=== PATIENT | male | born 1960 | race African-American/Black ===

== ENCOUNTER 2019-10-21 10:57 | Inpatient (IN) | payer OTHER ==
--- NOTE | 2019-10-21 11:14 | BHS.RME ---
Substance Use & Tx History - Substance Use History Heroin Substance amount: 2 bundles Frequency of use: Daily Substance route: Inhalation (ex: sniffing or snorting) Date of Last Use: 10/20/19 Cocaine- Powder Substance amount: 1 line Frequency of use: Once a month Substance route: Inhalation (ex: sniffing or snorting) Date of Last Use: 10/18/19 Nicotine Substance amount: 1 pack Frequency of use: Daily Substance route: Smoking Date of Last Use: 10/21/19 Physical/Psych/Mental Status - Behavior General Behavior: Increased activity (restlessness, agitation) Eye Contact: Normal - Cooperativeness Cooperativeness: Cooperative - Thinking Thought Processes: Tight, Logical, Goal Directed - Physical Health Problems Is patient presently having any pain?: No Does patient presently have any injuries (include location): No Does patient currently have a fever: No Is patient : No COWS - Scale Resting Pulse: 1= [place] 81-100 Sweatin= Beads of Sweat on Face Restless Observation: 1= Difficult to Sit Still Pupil Size: 1= Pupils >than Normal Bone or Joint Aches: 2= Severe Diffuse Aches Runny Nose/ Eye Tearin= Runny Nose/Eyes GI Upset > 30mins: 2= Nausea/Diarrhea Tremor Observation: 2= Slight Tremor Visible Yawning Observation: 1= 1-2x During Session Anxiety or Irritability: 2=Irritable/Anxious Goose Flesh Skin: 3=Piloerection COWS Score: 20
--- NOTE | 2019-10-21 12:43 | HP ---
COWS - Scale Resting Pulse: 1= [place] 81-100 Sweatin= Beads of Sweat on Face Restless Observation: 1= Difficult to Sit Still Pupil Size: 1= Pupils >than Normal Bone or Joint Aches: 2= Severe Diffuse Aches Runny Nose/ Eye Tearin= Runny Nose/Eyes GI Upset > 30mins: 2= Nausea/Diarrhea Tremor Observation: 2= Slight Tremor Visible Yawning Observation: 1= 1-2x During Session Anxiety or Irritability: 2=Irritable/Anxious Goose Flesh Skin: 3=Piloerection COWS Score: 20 CIWA Score - Admission Criteria [facility]ASAS Guidelines: Admission for Medically Managed Detox: Requires at least one of the followin. CIWA greater than 12 2. Seizures within the past 24 hours 3. Delirium tremens within the past 24 hours 4. Hallucinations within the past 24 hours 5. Acute intervention needed for co occurring medical disorder 6. Acute intervention needed for co occurring psychiatric disorder 7. Severe withdrawal that cannot be handled at a lower level of care (continued vomiting, continued diarrhea, abnormal vital signs) requiring intravenous medication and/or fluids 8. Admitting History and Physical - Admission Chief Complaint: Mr. Gaitan presents to [facility] stating "I'm tired, I don't want to get high anymore, I just want to get some help". 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 History of Present Illness: Mr. Gaitan presents to [facility] stating "I'm tired, I don't want to get high anymore, I just want to get some help". 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 This is his first visit to [facility]. PMH: HTN, on meds PSH; 2013: hernitated L23 (subsequent opioid rx) Psych: none SoC: homeless on streets Legal: none Substance Use History Heroin Substance amount: 2 bundles Frequency of use: Daily Substance route: Inhalation (ex: sniffing or snorting) Date of Last Use: 10/20/19 First use age 24 y Overdose x 2017, Has Narcan at home Cocaine- Powder Substance amount: 1 line Frequency of use: Once a month Substance route: Inhalation (ex: sniffing or snorting) Date of Last Use: 10/18/19 First use age 24 y Nicotine Substance amount: 1 pack Frequency of use: Daily Substance route: Smoking Date of Last Use: 10/21/19 First use age 12y MDMA; denies Admission ROS [facility] - HPI Exam Limitations: No Limitations - Ebola screening Have you traveled outside of the country in the last 21 days: No Have you been sick,other than usual withdrawal symptoms: No Do you have a fever: No - Review of Systems Constitutional: Unintentional Wgt. Loss (10-20 lbs in the past several months) EENT: reports: Blurred Vision (has reading glasses with him) Respiratory: reports: No Symptoms reported Cardiac: reports: No Symptoms Reported GI: reports: Nausea : reports: No Symptoms Reported Musculoskeletal: reports: Back Pain, Joint Pain Integumentary: reports: No Symptoms Reported Neuro: reports: No Symptoms reported Endocrine: reports: No Symptoms Reported Hematology: reports: No Symptoms Reported Psychiatric: reports: No Sypmtoms Reported Patient History - Smoking Cessation Smoking history: Current every day smoker Have you smoked in the past 12 months: Yes Aproximately how many cigarettes per day: 20 Hx Chewing Tobacco Use: No Initiated information on smoking cessation: Yes 'Breaking Loose' booklet given: 10/21/19 Admission Physical Exam [facility] Physical General Appearance: Yes: Within Normal Limits, No Apparent Distress, Nourished, Appropriately Dressed HEENTM: Yes: EOMI, Hearing grossly Normal, Normocephalic, Normal Voice Respiratory: Yes: Lungs Clear, Normal Breath Sounds, No Accessory Muscle Use Neck: Yes: Within Normal Limits, Supple Breast: Yes: Breast Exam Deferred Cardiology: Yes: Regular Rhythm, Regular Rate, S1, S2 Abdominal: Yes: Normal Bowel Sounds, Non Tender, Flat, Soft Genitourinary: Yes: Other (deferred) Back: Yes: Within Normal Limits Musculoskeletal: Yes: Gait Steady Extremities: Yes: Normal Inspection, Non-Tender Neurological: Yes: Within Normal Limits Integumentary: Yes: Normal Color, Dry, Warm - Diagnostic (1) Opioid use with withdrawal Current Visit: Yes Status: Acute (2) Cocaine use Current Visit: Yes Status: Acute (3) Nicotine dependence Current Visit: Yes Status: Acute (4) HTN (hypertension) Current Visit: Yes Status: Chronic (5) Homeless Current Visit: Yes Status: Acute Cleared for Admission [facility] - Detox or Rehab BHS Level of Care: Medically Managed Detox Regimen/Protocol: Methadone Breathalyzer - Breathalyzer Breathalyzer: 0 Urine Drug Screen - Test Device Lot number: [id number] Expiration date: 12/08/20 - Control Is test valid?: Yes - Results Drug screen NEGATIVE: No Urine drug screen results: DRAGAN-Cocaine, FEN-Fentanyl, MOP-Opiates, MTD- Methadone, MDMA-Ecstasy Inpatient Rehab Admission - Rehab Decision to Admit Inpatient rehab admission?: No
[2019-10-21] MEDS ORDERED: ONDANSETRON *ODT* 4 MG TABLET SL PRN (12:46)
[2019-10-21] MEDS ORDERED: MAGNESIUM CITRATE 300 ML BOTTLE PO PRN (12:46)
[2019-10-21] MEDS ORDERED: METHOCARBAMOL 500 MG TABLET PO PRN (12:46)
[2019-10-21] MEDS ORDERED: IBUPROFEN 400 MG TABLET (FP) PO PRN (12:46)
[2019-10-21] MEDS ORDERED: BISMUTH SUBSALICYLATE 524 MG/30 ML UD PO PRN (12:46)
[2019-10-21] MEDS ORDERED: MAGNESIUM HYDROX 2400MG/30ML ORAL SUSPENSION 30 ML CUP PO PRN (12:46)
[2019-10-21] MEDS ORDERED: MENTHOL/PHENOL 1 EACH UD MM PRN (12:46)
[2019-10-21] MEDS ORDERED: NICOTINE POLACRILEX 2 MG GUM BUC PRN (12:46)
[2019-10-21] MEDS ORDERED: ACETAMINOPHEN 325 MG TABLET (FP) PO PRN ×2 (12:46)
[2019-10-21] MEDS ORDERED: MAG HYDROX/AL HYDROX/SIMETH 30 ML UNIT-DOSE CUP PO PRN (12:46)
[2019-10-21 13:18] VITALS: BMI 22.1
--- NOTE | 2019-10-21 13:34 | EKG ---
Test Reason : Blood Pressure : / mmHG Vent. Rate : 067 BPM Atrial Rate : 067 BPM P-R Int : 154 ms QRS Dur : 092 ms QT Int : 452 ms P-R-T Axes : 066 014 010 degrees QTc Int : 477 ms NORMAL SINUS RHYTHM POSSIBLE LEFT ATRIAL ENLARGEMENT BORDERLINE ECG NO PREVIOUS ECGS AVAILABLE Confirmed by Ana Lilia Shane ([id number]) on 10/21/2019 1:34:15 PM Referred By: Confirmed By:Ana Lilia Shane
[2019-10-21] MEDS ORDERED: METHADONE HCL 10 MG TABLET (FOR DETOX USE ONLY) PO ONE (13:45)
[2019-10-21] MEDS: hydrOXYzine PAMOATE 25 MG CAPSULE (FP) PO SCH ×3 (14:05→22:41)
[2019-10-21] MEDS: NICOTINE 21 MG/24 HOURS TOPICAL PATCH TD SCH (14:06)
[2019-10-21 17:26] LABS: HEMATOCRIT 38.9 % (35.4-49); HEMOGLOBIN 12.9 GM/dL (11.7-16.9); MCH 31.7 pg (25.7-33.7); MCHC 33.1 g/dl (32.0-35.9); MEAN PLT VOLUME 8.6 fl (7.5-11.1); PLATELET COUNT 322 K/MM3 (134-434); RBC 4.05 M/mm3 (4.00-5.60); RDW 13.8 % (11.9-15.9); WHITE BLOOD COUNT 6.6 K/mm3 (4.0-10.0)
[2019-10-21 17:40] LABS: ALBUMIN 3.8 g/dl (3.4-5.0); BILIRUBIN,TOTAL 0.6 mg/dL (0.2-1); BLOOD UREA NITROGEN 12.9 mg/dL (7-18); CALCIUM 9.2 mg/dL (8.5-10.1); CREATININE 1.1 mg/dL (0.55-1.3); TOT PROT 7.8 g/dl (6.4-8.2)
[2019-10-21] MEDS: cloNIDine HCL 0.1 MG TABLET PO PRN ×2 (17:44→22:41)
[2019-10-21] MEDS: THIAMINE HCL 100 MG TABLET (FP) PO SCH (22:41)
[2019-10-21] MEDS: MELATONIN 5 MG TABLETS PO SCH (22:42)
[2019-10-22] MEDS: cloNIDine HCL 0.1 MG TABLET PO PRN (06:01)
[2019-10-22] MEDS: hydrOXYzine PAMOATE 25 MG CAPSULE (FP) PO SCH (06:01)
[2019-10-22] MEDS ORDERED: hydrOXYzine PAMOATE 25 MG CAPSULE (FP) PO PRN (09:16)
[2019-10-22] MEDS ORDERED: METHADONE HCL 5 MG TABLET (FOR DETOX USE ONLY) ONE (09:31)
[2019-10-22] MEDS ORDERED: METHADONE HCL 10 MG TABLET (FOR DETOX USE ONLY) ONE (09:32)
[2019-10-22] MEDS ORDERED: METHADONE (DETOX) 20 MG, METHADONE (DETOX) 5 MG PO ONE (10:00)
[2019-10-22] MEDS: amLODIPine BESYLATE 5 MG TABLET (FP) PO SCH (10:02)
[2019-10-22] MEDS: cloNIDine HCL 0.1 MG TABLET PO SCH ×2 (10:02→21:19)
[2019-10-22] MEDS: ENALAPRIL MALEATE 5 MG TABLET (FP) PO SCH (10:02)
[2019-10-22] MEDS: PRENATAL VITAMINS W/ FOLIC ACID TABLET (FP) PO SCH (10:04)
[2019-10-22] MEDS: NICOTINE 21 MG/24 HOURS TOPICAL PATCH TD SCH (10:04)
--- NOTE | 2019-10-22 10:35 | PN ---
BHS COWS - Scale Resting Pulse: 0= [place] 80 or Below Sweatin= Chills/Flushing Restless Observation: 1= Difficult to Sit Still Pupil Size: 0= Normal to Room Light Bone or Joint Aches: 2= Severe Diffuse Aches Runny Nose/ Eye Tearin= Nasal Congestion GI Upset > 30mins: 0= None Tremor Observation of Outstretched Hands: 2= Slight Tremor Visible Yawning Observation: 1= 1-2x During Session Anxiety or Irritability: 2=Irritable/Anxious Goose Flesh Skin: 3=Piloerection COWS Score: 13 BHS Progress Note (SOAP) Subjective: chills sweats shakes body aches agitation interrupted sleep restless irritable Objective: 10/22/19 10:33 Vital Signs Temperature 98 F 10/22/19 08:55 Pulse Rate 73 10/22/19 08:55 Respiratory Rate 18 10/22/19 08:55 Blood Pressure 158/101 H 10/22/19 08:55 O2 Sat by Pulse Oximetry (%) 100 10/22/19 05:40 Laboratory Tests 10/21/19 10/21/19 10/21/19 12:25 12:45 12:45 WBC 6.6 RBC 4.05 Hgb 12.9 Hct 38.9 MCV 96.0 MCH 31.7 MCHC 33.1 RDW 13.8 Plt Count 322 MPV 8.6 Sodium 143 Potassium 4.0 Chloride 107 Carbon Dioxide 30 Anion Gap 7 L BUN 12.9 Creatinine 1.1 Est GFR (CKD-EPI)AfAm 84.71 Est GFR (CKD-EPI)NonAf 73.09 Random Glucose 83 Calcium 9.2 Total Bilirubin 0.6 AST 21 ALT 18 Alkaline Phosphatase 120 H Total Protein 7.8 Albumin 3.8 Syphilis Serology Reactive A* COVID-19 (ELISEO) HIV Ag/Ab Combo Qual 10/21/19 10/21/19 13:20 13:20 WBC RBC Hgb Hct MCV MCH MCHC RDW Plt Count MPV Sodium Potassium Chloride Carbon Dioxide Anion Gap BUN Creatinine Est GFR (CKD-EPI)AfAm Est GFR (CKD-EPI)NonAf Random Glucose Calcium Total Bilirubin AST ALT Alkaline Phosphatase Total Protein Albumin Syphilis Serology COVID-19 (ELISEO) Not detected HIV Ag/Ab Combo Qual Negative labs noted aaox3 lying in bed no acute distress reactive A syphilis pending rpr Assessment: 10/22/19 10:34 withdrawals Plan: continue detox increase fluids valium 10mg prn x 4hrs for three days
[2019-10-22] MEDS: THIAMINE HCL 100 MG TABLET (FP) PO SCH (21:20)
[2019-10-22] MEDS: MELATONIN 5 MG TABLETS PO SCH (21:22)
[2019-10-23] MEDS ORDERED: METHADONE HCL 10 MG TABLET (FOR DETOX USE ONLY) PO ONE (10:00)
[2019-10-23] MEDS: cloNIDine HCL 0.1 MG TABLET PO SCH ×2 (10:11→21:02)
[2019-10-23] MEDS: amLODIPine BESYLATE 5 MG TABLET (FP) PO SCH (10:11)
[2019-10-23] MEDS: ENALAPRIL MALEATE 5 MG TABLET (FP) PO SCH (10:13)
[2019-10-23] MEDS: PRENATAL VITAMINS W/ FOLIC ACID TABLET (FP) PO SCH (10:14)
[2019-10-23] MEDS: NICOTINE 21 MG/24 HOURS TOPICAL PATCH TD SCH (10:14)
--- NOTE | 2019-10-23 13:50 | PN ---
S COWS - Scale Resting Pulse: 0= [place] 80 or Below Sweatin= No chills or Flushing Restless Observation: 0= Sits Still Pupil Size: 1= Pupils >than Normal Bone or Joint Aches: 1= Mild Discomfort Runny Nose/ Eye Tearin= Nasal Congestion GI Upset > 30mins: 1= Stomach Cramp Tremor Observation of Outstretched Hands: 2= Slight Tremor Visible Yawning Observation: 1= 1-2x During Session Anxiety or Irritability: 2=Irritable/Anxious Goose Flesh Skin: 0=Smooth Skin COWS Score: 9 BHS Progress Note (SOAP) Subjective: alert,irritable,anxious,interrupted sleep,tremor,pain in the body and back, Objective: 10/23/19 13:53 Vital Signs Temperature 98.2 F 10/23/19 09:10 Pulse Rate 73 10/23/19 09:10 Respiratory Rate 16 10/23/19 09:10 Blood Pressure 157/103 H 10/23/19 09:10 O2 Sat by Pulse Oximetry (%) 98 10/23/19 09:10 Laboratory Last Values WBC 6.6 K/mm3 (4.0-10.0) 10/21/19 12:25 RBC 4.05 M/mm3 (4.00-5.60) 10/21/19 12:25 Hgb 12.9 GM/dL (11.7-16.9) 10/21/19 12:25 Hct 38.9 % (35.4-49) 10/21/19 12:25 MCV 96.0 fl (80-96) 10/21/19 12:25 MCH 31.7 pg (25.7-33.7) 10/21/19 12:25 MCHC 33.1 g/dl (32.0-35.9) 10/21/19 12:25 RDW 13.8 % (11.9-15.9) 10/21/19 12:25 Plt Count 322 K/MM3 (134-434) 10/21/19 12:25 MPV 8.6 fl (7.5-11.1) 10/21/19 12:25 Sodium 143 mmol/L (136-145) 10/21/19 12:45 Potassium 4.0 mmol/L (3.5-5.1) 10/21/19 12:45 Chloride 107 mmol/L (98-107) 10/21/19 12:45 Carbon Dioxide 30 mmol/L (21-32) 10/21/19 12:45 Anion Gap 7 MMOL/L (8-16) L 10/21/19 12:45 BUN 12.9 mg/dL (7-18) 10/21/19 12:45 Creatinine 1.1 mg/dL (0.55-1.3) 10/21/19 12:45 Est GFR (CKD-EPI)AfAm 84.71 10/21/19 12:45 Est GFR (CKD-EPI)NonAf 73.09 10/21/19 12:45 Random Glucose 83 mg/dL (74-106) 10/21/19 12:45 Calcium 9.2 mg/dL (8.5-10.1) 10/21/19 12:45 Total Bilirubin 0.6 mg/dL (0.2-1) 10/21/19 12:45 AST 21 U/L (15-37) 10/21/19 12:45 ALT 18 U/L (13-61) 10/21/19 12:45 Alkaline Phosphatase 120 U/L (45-117) H 10/21/19 12:45 Total Protein 7.8 g/dl (6.4-8.2) 10/21/19 12:45 Albumin 3.8 g/dl (3.4-5.0) 10/21/19 12:45 Syphilis Serology Reactive (NONREACTIVE) A* 10/21/19 12:45 RPR Titer Reactive 1:1 (NONREACTIVE) H 10/21/19 12:45 COVID-19 (ELISEO) Not detected (Not Detected) 10/21/19 13:20 HIV Ag/Ab Combo Qual Negative (NEGATIVE) 10/21/19 13:20 patient was treated for syphilis adequately treated with 3 injection in 2018 Assessment: 10/23/19 13:55 withdrawal symptom Plan: continue detox methadone regimen
[2019-10-23] MEDS: diazePAM 5 MG TABLET PO PRN (17:38)
[2019-10-23] MEDS: MELATONIN 5 MG TABLETS PO SCH (21:02)
[2019-10-23] MEDS: THIAMINE HCL 100 MG TABLET (FP) PO SCH (21:02)
[2019-10-24] MEDS ORDERED: METHADONE HCL 10 MG TABLET (FOR DETOX USE ONLY) ONE (09:16)
[2019-10-24] MEDS ORDERED: METHADONE HCL 5 MG TABLET (FOR DETOX USE ONLY) ONE (09:16)
[2019-10-24] MEDS ORDERED: MELATONIN 5 MG TABLETS PO PRN (09:49)
[2019-10-24] MEDS ORDERED: DICYCLOMINE HCL 10 MG CAPSULE PO PRN (09:53)
[2019-10-24] MEDS ORDERED: DICYCLOMINE HCL 10 MG CAPSULE PO ONE (09:53)
--- NOTE | 2019-10-24 09:53 | PN ---
BHS COWS - Scale Resting Pulse: 0= [place] 80 or Below Sweatin= Chills/Flushing Restless Observation: 0= Sits Still Pupil Size: 0= Normal to Room Light Bone or Joint Aches: 1= Mild Discomfort Runny Nose/ Eye Tearin= None GI Upset > 30mins: 1= Stomach Cramp Tremor Observation of Outstretched Hands: 0= None Yawning Observation: 1= 1-2x During Session Anxiety or Irritability: 1=Feels Anxious/Irritable Goose Flesh Skin: 0=Smooth Skin COWS Score: 5 BHS Progress Note (SOAP) Subjective: stomach cramping sweats irritable Objective: 10/24/19 09:51 Vital Signs Temperature 96.9 F L 10/24/19 05:30 Pulse Rate 50 L 10/24/19 05:30 Respiratory Rate 16 10/24/19 05:30 Blood Pressure 154/73 10/24/19 05:30 O2 Sat by Pulse Oximetry (%) 95 10/24/19 05:30 Laboratory Tests 10/21/19 10/21/19 10/21/19 12:25 12:45 12:45 WBC 6.6 RBC 4.05 Hgb 12.9 Hct 38.9 MCV 96.0 MCH 31.7 MCHC 33.1 RDW 13.8 Plt Count 322 MPV 8.6 Sodium 143 Potassium 4.0 Chloride 107 Carbon Dioxide 30 Anion Gap 7 L BUN 12.9 Creatinine 1.1 Est GFR (CKD-EPI)AfAm 84.71 Est GFR (CKD-EPI)NonAf 73.09 Random Glucose 83 Calcium 9.2 Total Bilirubin 0.6 AST 21 ALT 18 Alkaline Phosphatase 120 H Total Protein 7.8 Albumin 3.8 Syphilis Serology Reactive A* RPR Titer COVID-19 (ELISEO) HIV Ag/Ab Combo Qual 10/21/19 10/21/19 10/21/19 12:45 13:20 13:20 WBC RBC Hgb Hct MCV MCH MCHC RDW Plt Count MPV Sodium Potassium Chloride Carbon Dioxide Anion Gap BUN Creatinine Est GFR (CKD-EPI)AfAm Est GFR (CKD-EPI)NonAf Random Glucose Calcium Total Bilirubin AST ALT Alkaline Phosphatase Total Protein Albumin Syphilis Serology RPR Titer Reactive 1:1 H COVID-19 (ELISEO) Not detected HIV Ag/Ab Combo Qual Negative aaox3 ambulating no acute distress Assessment: 10/24/19 09:52 withdrawals Plan: continue detox increase fluids Bentyl prn ensure bid
[2019-10-24] MEDS ORDERED: METHADONE (DETOX) 10 MG, METHADONE (DETOX) 5 MG PO ONE (10:00)
[2019-10-24] MEDS: cloNIDine HCL 0.1 MG TABLET PO SCH ×2 (10:58→21:25)
[2019-10-24] MEDS: NICOTINE 21 MG/24 HOURS TOPICAL PATCH TD SCH (10:58)
[2019-10-24] MEDS: PRENATAL VITAMINS W/ FOLIC ACID TABLET (FP) PO SCH (10:58)
[2019-10-24] MEDS: ENALAPRIL MALEATE 5 MG TABLET (FP) PO SCH (10:59)
[2019-10-24] MEDS: amLODIPine BESYLATE 5 MG TABLET (FP) PO SCH (10:59)
[2019-10-24] MEDS: diazePAM 5 MG TABLET PO PRN ×2 (11:03→21:24)
[2019-10-24] MEDS: THIAMINE HCL 100 MG TABLET (FP) PO SCH (21:24)
[2019-10-25] MEDS ORDERED: METHADONE HCL 10 MG TABLET (FOR DETOX USE ONLY) PO ONE (10:00)
[2019-10-25] MEDS: PRENATAL VITAMINS W/ FOLIC ACID TABLET (FP) PO SCH (11:13)
[2019-10-25] MEDS: cloNIDine HCL 0.1 MG TABLET PO SCH ×2 (11:13→22:29)
[2019-10-25] MEDS: ENALAPRIL MALEATE 5 MG TABLET (FP) PO SCH (11:13)
[2019-10-25] MEDS: NICOTINE 21 MG/24 HOURS TOPICAL PATCH TD SCH (11:13)
[2019-10-25] MEDS: amLODIPine BESYLATE 5 MG TABLET (FP) PO SCH (11:13)
--- NOTE | 2019-10-25 12:18 | PN ---
BHS COWS - Scale Resting Pulse: 1= [place] 81-100 Sweatin= No chills or Flushing Restless Observation: 0= Sits Still Pupil Size: 0= Normal to Room Light Bone or Joint Aches: 1= Mild Discomfort Runny Nose/ Eye Tearin= Nasal Congestion GI Upset > 30mins: 1= Stomach Cramp Tremor Observation of Outstretched Hands: 0= None Yawning Observation: 1= 1-2x During Session Anxiety or Irritability: 1=Feels Anxious/Irritable Goose Flesh Skin: 0=Smooth Skin COWS Score: 6 BHS Progress Note (SOAP) Subjective: alert,irritable,anxious,interrupted sleep,pain in the body Objective: 10/25/19 12:22 Vital Signs Temperature 98.4 F 10/25/19 08:45 Pulse Rate 82 10/25/19 08:45 Respiratory Rate 17 10/25/19 08:45 Blood Pressure 110/60 10/25/19 08:45 O2 Sat by Pulse Oximetry (%) 98 10/25/19 05:31 Assessment: 10/25/19 12:23 withdrawal symptom Plan: continue detox methadone regimen,discharge in am
[2019-10-25] MEDS: THIAMINE HCL 100 MG TABLET (FP) PO SCH (22:29)
[2019-10-26] MEDS ORDERED: METHADONE HCL 5 MG TABLET (FOR DETOX USE ONLY) PO ONE (06:00)
[2019-10-26] MEDS ORDERED: MASKS NR ONE (09:07)
[2019-10-26 09:49] VITALS: BP 104/75; PULSE 74; TEMP 97.7
[2019-10-26] MEDS: cloNIDine HCL 0.1 MG TABLET PO SCH (11:13)
[2019-10-26] MEDS: PRENATAL VITAMINS W/ FOLIC ACID TABLET (FP) PO SCH (11:14)
[2019-10-26] MEDS: NICOTINE 21 MG/24 HOURS TOPICAL PATCH TD SCH (11:14)
[2019-10-26] MEDS: ENALAPRIL MALEATE 5 MG TABLET (FP) PO SCH (11:14)
[2019-10-26] MEDS: amLODIPine BESYLATE 5 MG TABLET (FP) PO SCH (11:14)
--- NOTE | 2019-10-26 12:59 | DS ---
[facility] Detox Discharge Summary Admission Date: 10/21/19 Discharge Date: 10/26/19 - History Present History: Alcohol Dependence, Cocaine Dependence, Opioid Dependence Additional Comments: Alert and oriented x 3, in no acute respiratory distress. Full ROM, ambulating in the unit without assistance. Withdrawal symptoms. Detox protocol completed, pt stable to be discharged home. Pertinent Past History: History of HTN, heroin, cocaine and nicotine use disorder. - Physical Exam Results Vital Signs: Vital Signs Temperature 97.7 F 10/26/19 08:45 Pulse Rate 74 10/26/19 08:45 Respiratory Rate 18 10/26/19 08:45 Blood Pressure 104/75 10/26/19 08:45 O2 Sat by Pulse Oximetry (%) 99 10/26/19 08:45 Vital Signs 10/26/19 10/26/19 05:17 08:45 Temperature 97.1 F L 97.7 F Pulse Rate 48 L 74 Respiratory 20 18 Rate Blood Pressure 111/66 104/75 O2 Sat by Pulse 100 99 Oximetry (%) Laboratory Last Values WBC 6.6 K/mm3 (4.0-10.0) 10/21/19 12:25 RBC 4.05 M/mm3 (4.00-5.60) 10/21/19 12:25 Hgb 12.9 GM/dL (11.7-16.9) 10/21/19 12:25 Hct 38.9 % (35.4-49) 10/21/19 12:25 MCV 96.0 fl (80-96) 10/21/19 12:25 MCH 31.7 pg (25.7-33.7) 10/21/19 12:25 MCHC 33.1 g/dl (32.0-35.9) 10/21/19 12:25 RDW 13.8 % (11.9-15.9) 10/21/19 12:25 Plt Count 322 K/MM3 (134-434) 10/21/19 12:25 MPV 8.6 fl (7.5-11.1) 10/21/19 12:25 Sodium 143 mmol/L (136-145) 10/21/19 12:45 Potassium 4.0 mmol/L (3.5-5.1) 10/21/19 12:45 Chloride 107 mmol/L (98-107) 10/21/19 12:45 Carbon Dioxide 30 mmol/L (21-32) 10/21/19 12:45 Anion Gap 7 MMOL/L (8-16) L 10/21/19 12:45 BUN 12.9 mg/dL (7-18) 10/21/19 12:45 Creatinine 1.1 mg/dL (0.55-1.3) 10/21/19 12:45 Est GFR (CKD-EPI)AfAm 84.71 10/21/19 12:45 Est GFR (CKD-EPI)NonAf 73.09 10/21/19 12:45 Random Glucose 83 mg/dL (74-106) 10/21/19 12:45 Calcium 9.2 mg/dL (8.5-10.1) 10/21/19 12:45 Total Bilirubin 0.6 mg/dL (0.2-1) 10/21/19 12:45 AST 21 U/L (15-37) 10/21/19 12:45 ALT 18 U/L (13-61) 10/21/19 12:45 Alkaline Phosphatase 120 U/L (45-117) H 10/21/19 12:45 Total Protein 7.8 g/dl (6.4-8.2) 10/21/19 12:45 Albumin 3.8 g/dl (3.4-5.0) 10/21/19 12:45 Syphilis Serology Reactive (NONREACTIVE) A* 10/21/19 12:45 RPR Titer Reactive 1:1 (NONREACTIVE) H 10/21/19 12:45 COVID-19 (ELISEO) Not detected (Not Detected) 10/21/19 13:20 HIV Ag/Ab Combo Qual Negative (NEGATIVE) 10/21/19 13:20 Labs noted. Pertinent Admission Physical Exam Findings: withdrawal symptoms. - Treatment Hospital Course: Detox Protocol Followed, Detoxed Safely, Responded well, Discharged Condition Good - Medication Discharge Medications: Ambulatory Orders Amlodipine Besylate [Norvasc -] 5 mg PO DAILY 10/21/19 Clonidine HCl 0.2 mg PO BID 10/21/19 Cyclobenzaprine HCl [Flexeril 10 mg] 10 mg PO BID PRN 10/21/19 Enalapril Maleate [Vasotec] 5 mg PO DAILY 10/21/19 - Diagnosis (1) Cocaine use Status: Acute (2) Nicotine dependence Status: Chronic (3) Opioid use with withdrawal Status: Acute (4) HTN (hypertension) Status: Chronic - AMA Did Patient Leave Against Medical Advice: No
== END 2019-10-26 10:00 | disposition home or self-care (01) | DRG 897 ==
LOC: YASAS 10:57 → Y6N 13:31
PROVIDERS: ADMIT Allergy & Immunology; ATTEND Allergy & Immunology
PROC: HZ2ZZZZ Detoxification Services for Substance Abuse Treatment (ICD-10-PCS; principal; 2019-10-21)
DX: F10.230 Alcohol dependence with withdrawal, uncomplicated (principal); F11.23 Opioid dependence with withdrawal; F14.10 Cocaine abuse, uncomplicated; F17.210 Nicotine dependence, cigarettes, uncomplicated; I10 Essential (primary) hypertension; Z86.19 Personal history of other infectious and parasitic diseases; Z59.0 Homelessness
CPT/HCPCS: 36415; 80053; 85027; 86593; 86780; 87389; 93005; 93010; J0735; U0003